=== PATIENT | female | born 1995 | race Caucasian/White ===

== ENCOUNTER 2017-09-15 12:21 | Emergency (ER) | payer OTHER ==
[2017-09-15 12:31] VITALS: TEMP 97.9
[2017-09-15] MEDS ORDERED: NS 1,000 ML IV ONE (12:39)
[2017-09-15] MEDS ORDERED: IOPAMIDOL (ISOVUE-300) 100 ML BTL ONE (12:43)
--- NOTE | 2017-09-15 12:43 | EDPHY ---
H & P Time Seen by Provider: 09/15/17 12:25 HPI/ROS: HPI Right lower abdominal pain. 21-year-old female by private vehicle with her mother. This patient reports that on Monday she developed crampy lower abdominal pain which migrated to her right lower quadrant. She describes it as crampy in nature but with an underlying constant ache. She reports that she had her menses on Monday but this pain is different from the pain she has had in the past associated with menstrual cramping. She reports the dull ache in her right lower quadrant has been persistent and worsening today associated with intermittent more intense pain. She has had some mild nausea. No vomiting. No diarrhea. No bloody or melenic stool. She does have a history of constipation but she reports that over the last 24-48 hours her bowel movements have been looser and more soft unusual. No prior abdominal surgical history. Last meal was this morning at about 8:00 a.m.. She was seen at an urgent care prior to coming here. ROS: Constitutional: No fever, no chills. No weakness. Eyes: No discharge. No changes in vision. ENT: No sore throat. No nasal congestion or rhinorrhea. Respiratory: No cough. No shortness of breath. Cardiac: No chest pain, no palpitations. Gastrointestinal: As above, no vomiting, no diarrhea. Genitourinary: No hematuria. No dysuria or increased frequency with urination. Musculoskeletal: No back pain. No neck pain. No myalgias or arthralgias. Skin: No rashes. Neurological: No headache. No focal weakness or altered sensation. Past medical history: IUD. Social history: Nonsmoker. No alcohol. She is here with her mother. Physical Exam: General Appearance: Alert, no distress. This patient is responding to questions appropriately and in full sentences. This patient appears well- hydrated and well-nourished. Eyes: Pupils equal and round no pallor or injection. No lid edema, erythema or injection. Respiratory: There are no retractions, lungs are clear to auscultation with good air movement bilaterally. Cardiovascular: Regular rate and rhythm. No murmur. Gastrointestinal: Abdomen is soft with mild to moderate right lower quadrant and generalized mid abdominal tenderness on palpation, no masses, bowel sounds normal. No focal tenderness at McBurney's point. No Clancy sign. Neurological: Motor sensory function is grossly intact. Cranial nerves are normal. Gait is normal. Skin: Warm and dry, no rashes. Musculoskeletal: Neck is supple and nontender. Extremities are symmetrical. All joints range without pain or impingement. Psychiatric: No agitation. No depression. Database: EKG: Imaging: CT scan of abdomen and pelvis with IV contrast: Significant for diffuse wall thickening and bowel inflammation involving the colon and small bowel consistent with enterocolitis. Mesenteric adenitis is noted as well. The appendix is seen but is uniformly edematous with the other findings and without specific inflammatory changes, appendicitis is unlikely. Results were discussed with staff radiologist Dr. Dixon Richardson. Please see his report for further details. Procedures: Emergency department course: IV placed. Vital signs were reviewed. She is mildly tachycardic in triage. Vital signs otherwise normal. She was started on IV normal saline with 500 cc to 1 L to be given over the next hour. She and her mother consent to CT imaging to evaluate for appendicitis. She declines antiemetic and pain medication at this time. 1:50 p.m., patient re-evaluated. Resting comfortably at this time. I discussed results of her CT scan, blood work and urinalysis with her and her mother. I explained that based on her urine results alone a antibiotic is warranted at this time. I explained that her entero colitis is likely viral or bacterial. I explained that autoimmune process may also be possible. That said , she will be prescribed both ciprofloxacin and Flagyl. She was started on these antibiotics in the emergency department. Her mother who is in [employer] endorses this plan. I will have her follow up with her [facility] primary care physician for re-evaluation on Monday. Strict return to emergency department precautions were reviewed the 2 of them. All of their questions were answered. Repeat abdominal exam she is soft with vague and mild tenderness on palpation across her lower and mid abdomen. She was discharged in good condition with her mother. Differential Diagnosis: The differential diagnosis on this patient includes but is not limited to enterocolitis, urinary tract infection. Ruptured ovarian cyst, appendicitis, cholecystitis, ureterolithiasis, constipation unlikely. This represents a partial list of diagnoses considered. These considerations are based on history , physical exam, past history, reassessment and diagnostic testing. Smoking Status: Never smoked Constitutional: Initial Vital Signs Temperature (C) 36.6 C 09/15/17 12:27 Heart Rate 110 H 09/15/17 12:27 Respiratory Rate 20 09/15/17 12:27 Blood Pressure 129/80 H 09/15/17 12:27 O2 Sat (%) 98 09/15/17 12:27 O2 Delivery Mode Room Air Allergies/Adverse Reactions: No Known Allergies Allergy (Verified 04/05/15 19:10) Home Medications: Medication Instructions Recorded Ciprofloxacin [Cipro] 500 mg PO BID #14 tab 09/15/17 Nuvaring 09/15/17 metroNIDAZOLE [Flagyl 500 mg (*)] 500 mg PO TID #21 tab 09/15/17 Medical Decision Making - Diagnostics Imaging Results: Imaging Impressions Abdomen CT 09/15/17 12:39 Impression: Enterocolitis with a mesenteric lymphadenitis, likely virally or bacterially-mediated (no reported history of IBD). Clinical correlation and follow-up are suggested. There is also mild inflammation associated with the retrocecal appendix, however it is seen in association with the aforementioned abnormal inflammatory appearance of the ileum and colon. Findings were discussed with Becky Doty MD at 13:31, on 09/15/2017. - Data Points Laboratory Results: Laboratory Results 09/15/17 12:50 09/15/17 09/15/17 09/15/17 12:58 12:50 12:50 WBC 9.89 10^3/uL H 10^3/uL (3.80-9.50) RBC 4.69 10^6/uL 10^6/uL (4.18-5.33) Hgb 14.1 g/dL g/dL (12.6-16.3) POC Hgb 14.3 gm/dL gm/dL (12.6-16.3) Hct 42.5 % % (38.0-47.0) POC Hct 42 % % (38-47) MCV 90.6 fL fL (81.5-99.8) MCH 30.1 pg pg (27.9-34.1) MCHC 33.2 g/dL g/dL (32.4-36.7) RDW 13.2 % % (11.5-15.2) Plt Count 314 10^3/uL 10^3/uL (150-400) MPV 10.5 fL fL (8.7-11.7) Neut % (Auto) 80.1 % H % (39.3-74.2) Lymph % (Auto) 11.5 % L % (15.0-45.0) [place] % (Auto) 7.5 % % (4.5-13.0) Eos % (Auto) 0.3 % L % (0.6-7.6) Baso % (Auto) 0.4 % % (0.3-1.7) Nucleat RBC Rel Count 0.0 % % (0.0-0.2) Absolute Neuts (auto) 7.92 10^3/uL H 10^3/uL (1.70-6.50) Absolute Lymphs (auto) 1.14 10^3/uL 10^3/uL (1.00-3.00) Absolute Monos (auto) 0.74 10^3/uL 10^3/uL (0.30-0.80) Absolute Eos (auto) 0.03 10^3/uL 10^3/uL (0.03-0.40) Absolute Basos (auto) 0.04 10^3/uL 10^3/uL (0.02-0.10) Absolute Nucleated RBC 0.00 10^3/uL 10^3/uL (0-0.01) Immature Gran % 0.2 % % (0.0-1.1) Immature Gran # 0.02 10^3/uL 10^3/uL (0.00-0.10) POC Sodium 140 mEq/L mEq/L (135-145) POC Potassium 4.0 mEq/L mEq/L (3.3-5.0) POC Chloride 101 mEq/L mEq/L (97-110) POC BUN 3 mg/dL L mg/dL (7-23) POC Creatinine 0.7 mg/dL mg/dL (0.6-1.0) POC Glucose 93 mg/dL mg/dL (70-100) Beta HCG, Qual NEGATIVE Urine Color Urine Appearance Urine pH Ur Specific [place] Urine Protein Urine Ketones Urine Blood Urine Nitrate Urine Bilirubin Urine Urobilinogen Ur Leukocyte Esterase Urine RBC Urine WBC Ur Epithelial Cells Urine Bacteria Urine Mucus Urine Glucose 09/15/17 12:45 WBC RBC Hgb POC Hgb Hct POC Hct MCV MCH MCHC RDW Plt Count MPV Neut % (Auto) Lymph % (Auto) [place] % (Auto) Eos % (Auto) Baso % (Auto) Nucleat RBC Rel Count Absolute Neuts (auto) Absolute Lymphs (auto) Absolute Monos (auto) Absolute Eos (auto) Absolute Basos (auto) Absolute Nucleated RBC Immature Gran % Immature Gran # POC Sodium POC Potassium POC Chloride POC BUN POC Creatinine POC Glucose Beta HCG, Qual Urine Color YELLOW Urine Appearance CLEAR Urine pH 7.0 (5.0-7.5) Ur Specific [place] 1.010 (1.002-1.030) Urine Protein NEGATIVE (NEGATIVE) Urine Ketones NEGATIVE (NEGATIVE) Urine Blood 1+ H (NEGATIVE) Urine Nitrate NEGATIVE (NEGATIVE) Urine Bilirubin NEGATIVE (NEGATIVE) Urine Urobilinogen 0.2 EU EU (0.2-1.0) Ur Leukocyte Esterase 1+ H (NEGATIVE) Urine RBC 5-10 /hpf H /hpf (0-3) Urine WBC 50-182 /hpf H /hpf (0-3) Ur Epithelial Cells 3+ /lpf H /lpf (NONE-1+) Urine Bacteria 2+ /hpf H /hpf (NONE SEEN) Urine Mucus 1+ /lpf /lpf (NONE-1+) Urine Glucose NEGATIVE (NEGATIVE) Medications Given: Discontinued Medications Ciprofloxacin (Cipro) 500 mg PO EDNOW ONE PRN Reason: Protocol Stop: 09/15/17 13:46 Last Admin: 09/15/17 14:07 Dose: 500 mg Sodium Chloride (Ns) 1,000 mls @ 0 mls/hr IV EDNOW ONE; Wide Open PRN Reason: Protocol Stop: 09/15/17 12:40 Last Admin: 09/15/17 13:15 Dose: 1,000 mls Metronidazole (Flagyl) 500 mg PO EDNOW ONE PRN Reason: Protocol Stop: 09/15/17 13:46 Last Admin: 09/15/17 14:07 Dose: 500 mg Point of Care Test Results: 09/15/17 12:58 POC Sodium 140 POC Potassium 4.0 POC Chloride 101 POC BUN 3 L POC Creatinine 0.7 POC Glucose 93 Departure - Departure Disposition: Home, Routine, Self-Care Clinical Impression: Lower abdominal pain, Enterocolitis, Probable urinary tract infection Condition: Good Instructions: Urinary Tract Infection in Women (ED), Abdominal Pain (ED), Colitis (ED) Additional Instructions: Read and follow provided instructions. It is very important you follow up with your primary care physician on Monday for re-evaluation of [facility]. Take antibiotics as prescribed through entire course of treatment unless otherwise directed by a physician. Return to the emergency department for worsening symptoms, worsening pain, vomiting, bloody stool, fever or other serious concerns. Referrals: Laurita Enamorado MD [Primary Care Provider] - As per Instructions Prescriptions: Ciprofloxacin [Cipro] 500 mg PO BID #14 tab metroNIDAZOLE [Flagyl 500 mg (*)] 500 mg PO TID #21 tab
[2017-09-15 12:55] LABS: PLATELET COUNT 314 10^3/uL (150-400)
[2017-09-15] MEDS ORDERED: CIPROFLOXACIN 500 MG TAB PO ONE (13:45)
[2017-09-15] MEDS ORDERED: metroNIDAZOLE 500 MG TAB PO ONE (13:45)
[2017-09-15 14:13] VITALS: BP 123/82; PULSE 104; RESP 18; O2SAT 99
== END 2017-09-15 14:18 | disposition home or self-care (01) ==
LOC: CED 12:21
DX: K52.9 Noninfective gastroenteritis and colitis, unspecified (principal); E86.9 Volume depletion, unspecified
CPT/HCPCS: 74177-PO; 81003-PO; 81015-PO; 82947-QW; 84703-PO; 85025-PO; Q9967